=== PATIENT | female | born 1990 | race Caucasian/White ===

== ENCOUNTER 2019-12-26 13:42 | Inpatient (IN) | payer OTHER, SELFPAY ==
--- NOTE | ~2019-12-26 | US_ITS ---
US OB <= 14 weeks fetus DATE: 12/26/2019 14:40 INDICATION: Abdominal and back pain, nausea and vomiting. No known last menstrual period. Positive hC G test. TECHNIQUE: Real-time and color flow imaging and Doppler analysis COMPARISON: None FINDINGS: The uterus measures approximately 12 cm height, 5.4 cm anteroposterior and 9.1 cm transvers e dimension. A live turcios intrauterine gestation is identified. There is cardiac motion and heart rate averaging 188 bpm. There posterior placenta. There is a subjectively normal amount of amniotic fluid. [place]-rump length averages 5.88 cm, consistent with estimated gestational age of 12 weeks 3 days +/- 1 week 1 day; MARCE by ultrasound is 07/06/2020. The right ovary measures 2.4 x 1.7 x 1.8 cm. The left ovary measures 3.5 x 2.6 x 2.3 cm and contains a 2.9 x 1.7 x 1.3 cm cyst. No pelvic mass or abnormal free pelvic fluid collection is identified. IMPRESSION: Estimated gestational age of 12 weeks 3 days +/- 1 week 1 day; MARCE by ultrasound is 2019 Right ovarian cyst Reviewed, dictated and finalized at [facility]. Abdominal pain, back pain. Nausea and vomiting. No known last menstrual period. Positive hCG test at urgent care. Reviewed, dictated and finalized at [facility]. IMPRESSION: Estimated gestational age of 12 weeks 3 days +/- 1 week 1 day; MARCE by ultrasound is 07/06/2020 Right ovarian cyst
[2019-12-26 13:38] VITALS: BP 122/66; PULSE 90; RESP 21; TEMP 38.2; O2SAT 97
--- NOTE | 2019-12-26 13:50 | ED.ABDPAIN ---
HPI - Abdominal Pain General Chief Complaint: Abdominal Pain <Mo Nieto PA-C - Last Filed: 12/26/19 15:45> Stated Complaint: abd pain <Mo Nieto PA-C - Last Filed: 12/26/19 15:45> Time Seen by Provider: 12/26/19 13:46 <Mo Nieto PA-C - Last Filed: 12/26/19 15:45> Source: patient and EMS <TOM Huitron Last Filed: 12/26/19 15:45> Mode of arrival: EMS <TOM Huitron Last Filed: 12/26/19 15:45> Limitations: no limitations <Mo Nieto PA-C - Last Filed: 12/26/19 15:45> History of Present Illness HPI narrative: Patient is a 29-year-old female who presents to emergency department for evaluation of having had a positive test coupled with low back pain abdominal pain from urgent care patient has been having the symptoms on and off for months coupled with some intermittent emesis noting for the last 3 days she has had difficulty keeping things down. Patient denies diarrhea rectal bleeding or melena or hematemesis. Patient denies any vaginal bleeding. Patient does note some mild urinary discomfort. Patient presents G6, P4. Patient has not seen gynecology or fire prevention engineer for this and did not know that she was . Patient has not taken anything for her symptoms. Patient denies sick contacts <Mo Nieto PA-C - Last Filed: 12/26/19 15:45> Related Data Home Medications: Home Medications Medication Instructions Recorded Confirmed No Home Medications 12/26/19 12/26/19 <TOM Huitron Last Filed: 12/26/19 15:45> Allergies/Adverse Reactions: Allergies Allergy/AdvReac Type Severity Reaction Status Date / Time Penicillins Allergy Hives Verified 12/26/19 13:49 <Mo Nieto PA-C - Last Filed: 12/26/19 15:45> Review of Systems Review of Systems: All systems reviewed & are unremarkable except as noted in HPI and below <Mo Nieto PA-C - Last Filed: 12/26/19 15:45> [facility] Past Medical History Medical History: Medical History (Updated 12/26/19 @ 15:45 by Mo Nieto PA-C) Obesity <Mo Nieto PA-C - Last Filed: 12/26/19 15:45> Surgical History Surgical History: Surgical History History of delivery <Mo Nieto PA-C - Last Filed: 12/26/19 15:45> Family History Family History: Family History (Updated 12/26/19 @ 18:09 by Eliud Pretty RN) Sibling Asthma <Mo Nieto PA-C - Last Filed: 12/26/19 15:45> Social History Social History: Social History (Updated 12/26/19 @ 13:53 by Mo Nieto PA-C) Smoking status: Light tobacco smoker Additional smoking assessment comments: 1 on occasion, used to smoke 2 packs a day Alcohol intake: former Substance use: never Gender identity (if verbalized by the patient): Female Spiritual care concerns: No Agree to blood products: No <Mo Nieto PA-C - Last Filed: 12/26/19 15:45> Exam Narrative: Exam Narrative: GENERAL: Ill-appearing, obese, and in no acute distress. HEAD: Normocephalic, atraumatic. EYES: PERRLA and EOMI. ENT: Nares clear, no rhinorrhea or epistaxis. Mucous membranes moist. Oropharynx without tonsillar hypertrophy exudate or other lesions. CHEST: Clear to auscultation. No respiratory distress. No wheezes rales or rhonchi HEART: Regular rate and rhythm. No murmur heard. Normal peripheral pulses. ABDOMEN: Soft, generalized tenderness of the abdomen, nondistended FEMALE GENITOURINARY: Patient with white discharge in the vaginal vault otherwise unremarkable exam EXTREMITIES: Normal range of motion. No edema. SKIN: Warm, dry, no rash. NEURO: No focal deficits. Alert and oriented x3. Cranial nerves II through XII grossly intact PSYCH: Normal mood and affect. <Mo Nieto PA-C - Last Filed: 12/26/19 15:45> Course Course Emergency Course: Patient i
[2019-12-26] MEDS: SODIUM CHLORIDE 0.9% IV 3,100 ML/1,000 ML BAG 999 ML IV CONT ×4 (13:56→17:13)
[2019-12-26] MEDS: FAMOTIDINE 20 MG/2 ML VIAL IV PUSH ×2 (14:05→19:54)
[2019-12-26] MEDS: PROCHLORPERAZINE EDISYLATE 10 MG/2 ML VIAL IV PUSH (14:14)
--- NOTE | 2019-12-26 14:21 | PC.NURSE ---
Pt unable to give urine at this time. Pt blood was being drawn then taken to imaging.
[2019-12-26 14:27] LABS: Hematocrit 36.1 % (37.0-47.0); Hemoglobin 12.5 g/dL (12.0-15.0); Mean Corpuscular HGB Conc 34.6 g/dl (32-36); Mean Corpuscular Hemoglobin 30.1 pg (26-34); Mean Platelet Volume 10.3 fl (7.4-10.4); Platelet Count Result 215 k/mm3 (150-375); Red Blood Count 4.15 M/mm3 (4.2-5.4); Red Cell Distribution Width 12.3 % (11.5-14.5)
[2019-12-26 14:37] LABS: Prothrombin Time 13.1 Seconds (11.1-14.7)
[2019-12-26 14:38] LABS: Partial Thromboplastin Time 30.3 SECONDS (22.3-36.8)
[2019-12-26 14:51] LABS: Band Neutrophils Percent 7 % (0-6); Monocytes Absolute Manual 0.42 K/mm3 (0.1-0.90); Monocytes Percent Manual 3 % (3-9); Neutrophils Absolute Manual 12.88 K/mm3 (1.7-7.2); Neutrophils Percent Manual 85 % (46-73); Platelet Estimate Adequate (Adequate); Total Cells Counted 100
[2019-12-26 14:58] LABS: Alanine Aminotransferase 9 U/L (4-35); Alkaline Phosphatase 79 U/L (38-126); Aspartate Amino Transferase 14 U/L (14-36); Bilirubin,Total 0.9 mg/dL (0.2-1.3); Blood Urea Nitrogen 6 mg/dL (7-17); Calcium 8.6 mg/dL (8.4-10.2); Carbon Dioxide 21 mmol/L (22-30); Chloride 99 mmol/L (98-107); Estimated CRCL calculation 112 ml/min; Estimated Glomerular Filt Rate > 60; Glucose 112 mg/dL (65-105); Lipase 21 U/L (23-300); Potassium 3.5 mmol/L (3.4-5.0); Sodium 129 mmol/L (137-145)
[2019-12-26 15:24] LABS: Add Urine Microscopic? YES; Appearance Urine Cloudy (Clear); Bacteria Urine 1+ /hpf; Bilirubin Urine Negative (Negative); Blood Urine 1+ (Negative); Color Urine Yellow (Yellow); Glucose Urine UA Negative (Negative); Ketones Urine 1+ mg/dL (Negative); Leukocyte Esterase Ur 3+ LEU/UL (Negative); Mucus Urine Rare /lpf; Nitrate Urine Positive (Negative); Protein Urine 2+ mg/dL (Negative); Specific Grav Ur 1.019 (1.001-1.035); Squamous Epithelial Cell Urine Rare /hpf (Few); Urobilinogen Urine Negative mg/dL (<2.0); WBC Urine >75 /hpf
[2019-12-26 15:31] LABS: Amphetamine Screen Urine Negative (Negative); Barbiturate Screen Urine Negative (Negative); Benzodiazepines Screen Urine Negative (Negative); Cannabinoid Screen Urine Negative (Negative); Cocaine Screen Urine Negative (Negative); Methadone Screen Urine Negative (Negative); Opiate Screen Urine Negative (Negative); Phencyclidine Screen Urine Negative (Negative)
[2019-12-26 15:38] VITALS: BP 94/53; PULSE 104; RESP 20; O2SAT 98
[2019-12-26 15:46] VITALS: BP 100/53; PULSE 81; RESP 20; O2SAT 99
--- NOTE | 2019-12-26 15:54 | PC.NURSE ---
Addendum entered by Jenna Estes RN 12/26/19 17:01: had concerns about patient and if her behavior was appropriate, he stated that pt has hx of psyche issues. also had concerns of her gestational age and told nurse he believed pt was cheating on him. I updated patient and she said it was okay with me updating , I told him. I encouraged patien to again call her Original Note: Pt called x2. Nurse unable to speak with him but both times told patient to call him on her cell phone. Pt told nurse if he called back I could update him. called a third time. updated.
[2019-12-26 15:57] LABS: Lactic Acid Reflex 0.8 mmol/L (0.7-2.1)
[2019-12-26 16:02] LABS: CRP 15.9 mg/dL (<1.0)
[2019-12-26] MEDS: AZITHROMYCIN 250 MG TABLET 1000 MG PO (16:07)
[2019-12-26] MEDS: metroNIDAZOLE 250 MG TABLET 2000 MG PO (16:07)
[2019-12-26] MEDS: ONDANSETRON INJ 4 MG/2 ML VIAL IV PUSH (17:05)
--- NOTE | 2019-12-26 17:06 | PC.NURSE ---
Lab called me about issuing RHogam. [facility] had told me prior that he did not want it. I was unable to find [facility] at this time so I asked Dr. Vaughan if the patient needed it and she said that they did not.
[2019-12-26 17:15] VITALS: BP 116/62; PULSE 73; RESP 18; O2SAT 100
--- NOTE | 2019-12-26 17:15 | ADMGEN ---
This patient, Bridgette Leal, was admitted to Medical Room 246-. Patient/family oriented to hospital policies and general routines including ID bracelet, bed and alarms, visiting hours, pain management, procedures, bathroom and other care routines, personal items, smoking policy, room service/diet, and visiting hours. Valuables list has been completed. Information on how to activate the Rapid Response Team has been discussed. Patient/Family are encouraged to report perceived risks to care and to ask questions if they do not understand what they are told or what they should do.
[2019-12-26 17:55] VITALS: BP 92/50; PULSE 73; RESP 18; TEMP 36.1; O2SAT 100
[2019-12-26] MEDS: LACTATED RINGERS 1,000 ML 125 ML IV CONT (18:02)
[2019-12-26 18:04] VITALS: BMI 43.7
[2019-12-26 22:00] VITALS: BP 106/47; PULSE 87; RESP 20; TEMP 36.1; O2SAT 98
[2019-12-27] MEDS: LACTATED RINGERS 1,000 ML 125 ML IV CONT ×2 (03:59→10:34)
[2019-12-27 05:45] LABS: Basophils Percent Auto 0.1 % (0.2-1.2); Eosinophils Percent Auto 0.2 % (0-4.4); Hematocrit 26.5 % (37.0-47.0); Hemoglobin 9.3 g/dL (12.0-15.0); Immature Granulocyte Absolute 0.04 K/mm3 (0.00-0.031); Immature Granulocyte Percent A 0.4 % (0-0.5); Lymphocytes Percent Auto 6.3 % (18.3-44.2); Mean Corpuscular HGB Conc 35.1 g/dl (32-36); Mean Corpuscular Hemoglobin 30.9 pg (26-34); Monocytes Absolute Auto 0.5 K/mm3 (0.1-0.6); Monocytes Percent Auto 5.1 % (2.6-8.5); Neutrophils Absolute Auto 8.4 K/mm3 (1.3-6.7); Neutrophils Percent Auto 87.9 % (45.5-73.1); Platelet Count Result 155 k/mm3 (150-375); Red Blood Count 3.01 M/mm3 (4.2-5.4); Red Cell Distribution Width 12.5 % (11.5-14.5); White Blood Count 9.6 K/mm3 (4.5-10.0)
[2019-12-27 06:00] VITALS: BP 117/60; PULSE 70; RESP 21; TEMP 35.9; O2SAT 100
[2019-12-27 06:12] LABS: Alanine Aminotransferase 8 U/L (4-35); Albumin Level 2.5 g/dL (3.5-5.1); Alkaline Phosphatase 52 U/L (38-126); Aspartate Amino Transferase 12 U/L (14-36); Bilirubin,Total 0.4 mg/dL (0.2-1.3); Blood Urea Nitrogen 4 mg/dL (7-17); Calcium 7.4 mg/dL (8.4-10.2); Carbon Dioxide 20 mmol/L (22-30); Chloride 106 mmol/L (98-107); Estimated CRCL calculation 152 ml/min; Estimated Glomerular Filt Rate > 60; Glucose 137 mg/dL (65-105); Potassium 3.3 mmol/L (3.4-5.0); Sodium 130 mmol/L (137-145)
[2019-12-27] MEDS: FAMOTIDINE 20 MG/2 ML VIAL IV PUSH ×2 (08:23→21:38)
--- NOTE | 2019-12-27 09:51 | PM.IMHP ---
H&P: HPI History of Present Illness Chief complaint: PYELONEPHRITIS,,DEHYDRATION Narrative: Bridgette Leal is a 29 year old female She 6 before at 12 weeks gestation was admitted with flank pain and findings consistent pyelonephritis. White count was elevated and IV antibiotics and fluids were started. Ultrasound showed a normal IUP. She had had no previous care up to this point Review of Systems Review of Systems: All systems reviewed & are unremarkable except as noted in HPI and below PMFSH Past Medical History Medical History Obesity Surgical History Surgical History History of delivery Family History Family History Sibling Asthma Social History Social History Smoking status: Light tobacco smoker Additional smoking assessment comments: 1 on occasion, used to smoke 2 packs a day Alcohol intake: former Substance use: never Gender identity (if verbalized by the patient): Female Spiritual care concerns: No Agree to blood products: No Meds Home Medications and Allergies Home Medications Medication Instructions Recorded Confirmed Type No Home Medications 12/26/19 12/26/19 History Allergies Allergy/AdvReac Type Severity Reaction Status Date / Time Penicillins Allergy Hives Verified 12/26/19 13:49 Vital Signs Vital Signs - 24 hr 12/26/19 13:38 12/26/19 15:38 12/26/19 15:46 Temperature 100.8 F H Pulse Rate 90 104 H 81 Respiratory Rate 21 H 20 20 Blood Pressure 122/66 94/53 L 100/53 L Pulse Oximetry 97 98 99 12/26/19 17:15 12/26/19 17:55 12/26/19 22:00 Temperature 97 F L 97.0 F L Pulse Rate 73 73 87 Respiratory Rate 18 18 20 Blood Pressure 116/62 92/50 L 106/47 L Pulse Oximetry 100 100 98 12/27/19 06:00 Temperature 96.6 F L Pulse Rate 70 Respiratory Rate 21 H Blood Pressure 117/60 Pulse Oximetry 100 Exam Const: General: no acute distress Eyes: General: appearance normal, both eyes and all related structures Neck: Neck: supple and no JVD Thyroid: thyroid normal Resp: Effort & Inspection: normal respiratory effort Auscultation: clear to auscultation bilaterally Cardio: Rate: regular rate Rhythm: regular rhythm GI: Inspection: non-distended GI Palp: Yes Soft to palpation, No Tenderness to palpation present (GI) and No Guarding due to palpation present (GI) Auscultation: normal bowel sounds : Speculum Exam - Vagina: normal appearance of the vagina (cva tenderness) Skin: General skin exam: no rashes or lesions noted Extrem: General: normal to inspection and no edema Psych: Mental Status: mental status grossly normal Affect: normal affect H&P: Results Labs Labs: Short CBC 12/26/19 12/27/19 Range/Units 14:12 05:08 WBC 14.0 H 9.6 (4.5-10.0) K/mm3 Hgb 12.5 9.3 L D (12.0-15.0) g/dL Hct 36.1 L 26.5 L (37.0-47.0) % Plt Count 215 155 (150-375) k/mm3 BMP 12/26/19 12/27/19 14:12 05:08 Sodium 129 L 130 L Potassium 3.5 3.3 L Chloride 99 106 Carbon Dioxide 21 L 20 L BUN 6 L 4 L Creatinine 0.70 0.50 L Glucose 112 H 137 H Calcium 8.6 7.4 L Liver Function 12/26/19 12/27/19 Range/Units 14:12 05:08 Total Bilirubin 0.9 0.4 (0.2-1.3) mg/dL AST 14 12 L (14-36) U/L ALT 9 8 (4-35) U/L Alkaline Phosphatase 79 52 (38-126) U/L Albumin 4.0 2.5 L (3.5-5.1) g/dL Urine 12/26/19 Range/Units 15:08 Urine Color Yellow (Yellow) Urine Appearance Cloudy H (Clear) Urine pH 6.0 (5.0-9.0) Ur Specific [place] 1.019 (1.001-1.035) Urine Protein 2+ H (Negative) mg/dL Urine Glucose (UA) Negative (Negative) mg/dL Assessment and Plan Additional Plan Impression: 12 week IUP with pyelonephritis and dehydration
--- NOTE | 2019-12-27 10:27 | PM.OBPNVD ---
OB - PN: Subj Subjective Date/time seen: 12/27/19 10:27 Interval history: feeling better. still with [facility] OB - PN: Obj Data Labs CBC & Chem 7: 12/27/19 05:08 12/27/19 05:08 Labs: Laboratory Results - last 24 hr 12/26/19 12/26/19 12/26/19 14:12 14:12 14:12 WBC 14.0 H RBC 4.15 L Hgb 12.5 Hct 36.1 L MCV 87.0 MCH 30.1 MCHC 34.6 RDW 12.3 Plt Count 215 MPV 10.3 Immature Gran % (Auto) Not Reportable Neut % (Auto) Not Reportable Lymph % (Auto) Not Reportable [place] % (Auto) Not Reportable Eos % (Auto) Not Reportable Baso % (Auto) Not Reportable Lymph # (Auto) Not Reportable [place] # (Auto) Not Reportable Eos # (Auto) Not Reportable Baso # (Auto) Not Reportable Abs Immat Gran (auto) Not Reportable Absolute Neuts (auto) Not Reportable Absolute Nucleated RBC Not Reportable Total Counted 100 Neutrophils % (Manual) 85 H Band Neutrophils % 7 H Lymphocytes % (Manual) 5.0 L Monocytes % (Manual) 3 Nucleated RBC % Not Reportable Abs Neuts (Manual) 12.88 H Abs Lymphs (Manual) 0.70 L Abs Monocytes (Manual) 0.42 Platelet Estimate Adequate PT 13.1 INR 1.0 APTT 30.3 Sodium 129 L Potassium 3.5 Chloride 99 Carbon Dioxide 21 L BUN 6 L Creatinine 0.70 Estim Creat Clear Calc 112 Estimated GFR > 60 Glucose 112 H Lactic Acid Calcium 8.6 Total Bilirubin 0.9 AST 14 ALT 9 Alkaline Phosphatase 79 C-Reactive Protein 15.9 H Total Protein 8.0 Albumin 4.0 Lipase 21 L Beta HCG, Quant 58120.00 Urine Color Urine Appearance Urine pH Ur Specific [place] Urine Protein Urine Glucose (UA) Urine Ketones Ur Blood (Man) Urine Nitrate Urine Bilirubin Urine Urobilinogen Leukocyte Esterase Rfl Urine RBC Urine WBC Ur Squamous Epith Cells Urine Bacteria Urine Mucus Urine Opiates Screen Urine Methadone Screen Ur Barbiturates Screen Ur Phencyclidine Scrn Ur Amphetamine Screen U Benzodiazepines Scrn Urine Cocaine Screen U Cannabinoids Screen Trichomonas Direct ID Blood Type Antibody Screen Screen Baby's Blood Type Baby's LLUVIA Doses of RhIg Required 12/26/19 12/26/19 12/26/19 15:08 15:08 15:36 WBC RBC Hgb Hct MCV MCH MCHC RDW Plt Count MPV Immature Gran % (Auto) Neut % (Auto) Lymph % (Auto) [place] % (Auto) Eos % (Auto) Baso % (Auto) Lymph # (Auto) [place] # (Auto) Eos # (Auto) Baso # (Auto) Abs Immat Gran (auto) Absolute Neuts (auto) Absolute Nucleated RBC Total Counted Neutrophils % (Manual) Band Neutrophils % Lymphocytes % (Manual) Monocytes % (Manual) Nucleated RBC % Abs Neuts (Manual) Abs Lymphs (Manual) Abs Monocytes (Manual) Platelet Estimate PT INR APTT Sodium Potassium Chloride Carbon Dioxide BUN Creatinine Estim Creat Clear Calc Estimated GFR Glucose Lactic Acid 0.8 Calcium Total Bilirubin AST ALT Alkaline Phosphatase C-Reactive Protein Total Protein Albumin Lipase Beta HCG, Quant Urine Color Yellow Urine Appearance Cloudy H Urine pH 6.0 Ur Specific [place] 1.019 Urine Protein 2+ H Urine Glucose (UA) Negative Urine Ketones 1+ H Ur Blood (Man) 1+ H Urine Nitrate Positive H Urine Bilirubin Negative Urine Urobilinogen Negative Leukocyte Esterase Rfl 3+ H Urine RBC 11-20 H Urine WBC >75 H Ur Squamous Epith Cells Rare Urine Bacteria 1+ H Urine Mucus Rare Urine Opiates Screen Negative Urine Methadone Screen Negative Ur Barbiturates Screen Negative Ur Phencyclidine Scrn Negative Ur Amphetamine Screen Negative U Benzodiazepines Scrn Negative Urine Cocaine Screen Negative
--- NOTE | 2019-12-27 10:43 | PC.NURSE ---
Found patient disconnected from IV fluids and IV pump off. Instructed pt to call when pump beeps so that I can address it. Will continue to monitor.
[2019-12-27 14:00] VITALS: BP 107/60; PULSE 73; RESP 20; TEMP 36.6; O2SAT 100
[2019-12-27 20:00] VITALS: BP 100/48; PULSE 74; RESP 18; TEMP 36.2; O2SAT 99
[2019-12-27] MEDS: PROCHLORPERAZINE EDISYLATE 10 MG/2 ML VIAL IV PUSH (20:11)
[2019-12-28] MEDS: LACTATED RINGERS 1,000 ML 125 ML IV CONT (00:12)
--- NOTE | 2019-12-28 06:25 | P.DS_ITS ---
DS: Diagnosis Admitting Diagnosis Admitting Diagnosis: 12 week iup pyelonephritis DS: Summary Time Spent with Patient Time attestation: Total time spent providing and/or coordinating discharge services: Exam Const: General: no acute distress Eyes: General: appearance normal, both eyes and all related structures Neck: Neck: supple and no JVD Thyroid: thyroid normal Resp: Effort & Inspection: normal respiratory effort Auscultation: clear to auscultation bilaterally Cardio: Rate: regular rate Rhythm: regular rhythm GI: Inspection: non-distended GI Palp: Yes Soft to palpation, No Tenderness to palpation present (GI) and No Guarding due to palpation present (GI) Auscultation: normal bowel sounds : General: Yes bladder normal to palpation External Female Exam: normal external appearance Speculum Exam - Vagina: normal vaginal discharge and No vaginal bleeding Speculum Exam - Cervix: nontender Bimanual exam- vagina & uterus: bladder normal to palpation and No Cervical tenderness present OB/external & speculum: No vaginal bleeding Skin: General skin exam: no rashes or lesions noted Extrem: General: normal to inspection and no edema Psych: Mental Status: mental status grossly normal Affect: normal affect DS: Data Data Completed and Pending Labs on day of discharge: Labs from last 24 hours 12/26/19 14:12 C.trachomatis RNA (TMA) Cancelled N.gonorrhoeae RNA (TMA) Cancelled Preliminary micro results at discharge 12/26/19 15:08 Urine Culture - Preliminary Urine Catheterized Escherichia Coli 12/26/19 14:12 Blood Culture - Preliminary Blood 12/26/19 15:36 Blood Culture - Preliminary Blood Discharge Plan Discharge Attending physician on discharge: Jefe Sharma Discharging Clinician: Jefe Sharma Patient Disposition: Home, Self-Care Activity: unlimited Diet: heart healthy Wound Care Instructions: follow printed instructions Patient Instructions: Antibiotic Form, Pain Management (GEN) Stand Alone Forms: General Discharge Information Follow-up/Referrals: Jefe Sharma MD [Physician] - Discharge Medications: New hydrocodone-acetaminophen [[place]] 5-325 mg tablet 1 tablet PO Q4H PRN (Reason: pain) Qty: 20 RF: 0 cephalexin [Keflex] 500 mg capsule 500 mg PO Q8H Qty: 30 RF: 0 No Action No Home Medications RF: 0 Date of admission: 12/26/19 15:46 Primary Care Provider: UNKNOWN,DOCTOR Admitting Provider: Jefe Sharma Attending physician on admission: Jefe Sharma Condition: Improved
--- NOTE | 2019-12-28 06:32 | PM.OBPNVD ---
OB - PN: Subj Subjective Date/time seen: 12/28/19 06:32 Interval history: feeling better. still with [facility] OB - PN: Obj Data Labs CBC & Chem 7: 12/27/19 05:08 12/27/19 05:08 Labs: Laboratory Results - last 24 hr 12/26/19 14:12 C.trachomatis RNA (TMA) Cancelled N.gonorrhoeae RNA (TMA) Cancelled OB - PN A/P Plan day: 2 Plan: follow up 6 weeks (1 week) Time Spent With Patient Time: Total time spent is greater than 50% in coordination of care (as documented) at patient's floor/unit and/or counseling patient: Time with patient: less than 15 minutes Review of Systems Review of Systems: All systems reviewed & are unremarkable except as noted in HPI and below Exam Const: General: no acute distress Eyes: General: appearance normal, both eyes and all related structures Neck: Neck: supple and no JVD Thyroid: thyroid normal Resp: Effort & Inspection: normal respiratory effort Auscultation: clear to auscultation bilaterally Cardio: Rate: regular rate Rhythm: regular rhythm GI: Inspection: non-distended GI Palp: Yes Soft to palpation, No Tenderness to palpation present (GI) and No Guarding due to palpation present (GI) Auscultation: normal bowel sounds : General: Yes bladder normal to palpation External Female Exam: normal external appearance Speculum Exam - Vagina: normal vaginal discharge and No vaginal bleeding Speculum Exam - Cervix: nontender Bimanual exam- vagina & uterus: bladder normal to palpation and No Cervical tenderness present OB/external & speculum: No vaginal bleeding Skin: General skin exam: no rashes or lesions noted Extrem: General: normal to inspection and no edema Psych: Mental Status: mental status grossly normal Affect: normal affect
== END 2019-12-28 09:50 | disposition home or self-care (01) | DRG 566 ==
LOC: ANHED 16:23 → ANH2MED 16:38
PROVIDERS: Emergency Medicine Emergency Medical Services; Admitting Provider Obstetrics & Gynecology; Emergency Provider Emergency Medicine; Visit Provider Obstetrics & Gynecology
DX: O23.01 Infections of kidney in pregnancy, first trimester (principal); Z3A.12 12 weeks gestation of pregnancy; N10 Acute pyelonephritis; E86.0 Dehydration; O99.211 Obesity complicating pregnancy, first trimester; E66.9 Obesity, unspecified
CPT/HCPCS: 36415; 51701; 76801; 80053; 80307; 81001; 83605; 83690; 84702; 85025; 85461; 85610; 85730; 86140; 87040; 87077; 87086; 87088; 87186; 87808; 96361; 96365; 96375; 99285; A9270; J0131; J0696; J0780; J2405; J7030; J7120